=== PATIENT | female | born 1970 | race Caucasian/White ===

== ENCOUNTER 2020-04-24 13:06 | Emergency (ER) | payer OTHER, SELFPAY ==
[2020-04-24 13:14] VITALS: BP 129/80; PULSE 105; RESP 18; TEMP 36.7; O2SAT 97
--- NOTE | 2020-04-24 13:20 | ED.URI ---
HPI - URI/Sore Throat General Chief Complaint: Upper Respiratory Infection Stated Complaint: throat cough and chest Time Seen by Provider: 04/24/20 13:20 Source: patient and RN notes reviewed History of Present Illness HPI Narrative: Patient is a 49-year-old female who presents the urgent care with complaints of congestion, cough and sore throat. States that it started Thursday after being on a float trip at [facility] on Thursday and Thursday. Patient states she has been very compliant on wearing her mask and denies of any known exposure to COVID. Patient has been using [id number] decongestion. Denies of any shortness of breath, fever, chills, nausea, vomiting. States that she is expecting a new grandbaby this week and wants to make sure she is not contagious . No other acute complaints. No acute distress noted. Patient had a plan of care. Related Data Allergies Allergy/AdvReac Type Severity Reaction Status Date / Time No Known Allergies Allergy Mild Unverified 11/21/17 16:54 Review of Systems Review of Systems: Narrative: CONSTITUTIONAL: Denies fever, chills, or sweats. EYES: Denies visual changes, redness, or discharge. ENT: Reports of sore throat and congestion CARDIOVASCULAR: Denies chest pain, palpitations, or edema. RESPIRATORY: Reports of nonproductive cough without dyspnea GASTROINTESTINAL: Denies abdominal pain, nausea, vomiting, or diarrhea. GENITOURINARY: Denies dysuria or hematuria. SKIN: Denies rash or itching. MUSCULOSKELETAL: Denies back pain, joint pain, or myalgia. NEUROLOGIC: Denies headache, numbness, or weakness. All other systems reviewed are negative, except as documented in HPI. PMFSH Family History Family History (Updated 01/25/18 @ 10:56 by DOCTOR UNKNOWN) Sibling Family history of elevated blood lipids Patient's brother is in good health Father Patient's father is Social History Social History Smoking status: Never smoker Alcohol intake: never Comments At the time of my signature, I reviewed and agree with the nursing past medical, surgical, social, and family history. There is no relevant family history pertinent to the patient complaint. Exam Narrative: Exam Narrative: GENERAL: This is a well-nourished, well-developed patient, in no apparent distress. HEAD: normocephalic, atraumatic. EYES: PERRL. Sclera clear/white. Vision is grossly intact. EARS: External ears normal, auditory canals clear and without drainage, TMs normal without perforation. Hearing grossly intact. NOSE: External nose normal with no obvious nasal discharge, nares without redness, no rhinorrhea. THROAT: Mucous membranes moist, mild erythema noted to posterior oropharynx with mild postnasal drainage NECK: Neck supple CARDIOVASCULAR: Regular rate and rhythm without murmurs, gallops, or rubs. RESPIRATORY: Clear to auscultation. Breath sounds equal bilaterally. No wheezes, rales, or rhonchi. SKIN: warm, intact with no suspicious lesions or rash, good texture and turgor. NEURO: awake, alert, and oriented to person, place and time. There were no obvious focal neurologic abnormalities. EXTREMITIES: No clubbing, cyanosis, or edema. Course Vital Signs Vital signs: Vital Signs Temperature 98.0 F 04/24/20 13:14 Pulse Rate 105 H 04/24/20 13:14 Respiratory Rate 18 04/24/20 13:14 Blood Pressure 129/80 04/24/20 13:14 Pulse Oximetry 97 04/24/20 13:14 Temperature 98.0 F 04/24/20 13:14 Pulse Rate 105 H 04/24/20 13:14 Respiratory Rate 18 04/24/20 13:14 Blood Pressure 129/80 04/24/20 13:14 Pulse Oximetry 97 04/24/20 13:14 Reviewed MDM - URI/Sore Throat MDM Narrative Medical decision making narrative: Reviewed lab results with the patient. She is aware that strep swab was negative. Educated patient on culture, we will call within 72 hours if culture is positive and antibiotics are necessary. If you wish to call to check on the results, wait at least 72 h
== END 2020-04-24 13:48 | disposition home or self-care (01) ==
PROVIDERS: Emergency Provider Nurse Practitioner Family; PCP Internal Medicine
DX: J02.9 Acute pharyngitis, unspecified (principal)
CPT/HCPCS: 87081; 87880; 99213; G0463

== ENCOUNTER → 2022-02-07 13:24 | Outpatient (CLI) | payer OTHER, SELFPAY ==
--- NOTE | ~2022-02-07 | MM_ITS ---
EXAMINATION: MM screening [facility] BI w mimi HISTORY: Screening TECHNIQUE: Craniocaudal and mediolateral oblique 3-D tomosynthesis images were obtained and synthetic 2-D images were generated. CAD analysis was submitted and interpreted. COMPARISON: Comparison to multiple prior studies sequentially, with oldest reviewed study dated 09/26. BREAST PARENCHYMAL COMPOSITION: There are scattered areas of fibroglandular density. FINDINGS: There is no evidence of suspicious mass, calcification, or architectural distortion to sugg est malignancy in either breast. There has been no suspicious interval change. IMPRESSION: 1. No mammographic evidence of malignancy. 2. Recommend routine screening mammography in one year. BI-RADS Category 1: Negative Reviewed, dictated and finalized at location A.
== END ==
PROVIDERS: Visit Provider Internal Medicine
DX: Z12.31 Encounter for screening mammogram for malignant neoplasm of breast (principal)
CPT/HCPCS: 77063; 77067

== ENCOUNTER 2022-02-10 16:56 | Outpatient (CLI) | payer OTHER, SELFPAY ==
--- NOTE | ~2022-02-10 | XR_ITS ---
EXAM: XR knee LT 3V HISTORY: M25.562 - Pain in left knee X 2 WKS, NO INJURY, HARD TO BEND COMPARISON: None available FINDINGS: Normal mineralization. No fracture or dislocation. Moderate medial and mild lateral joint space narrowing. Mild osteophytosis present in the medial compartment. Moderate volume joint fluid. S mall posterior ossicle may represent a fabella or loose body in a posterior joint recess. IMPRESSION: No acute osseous finding in the left knee. Moderate left knee joint effusion. Reviewed, dictated and finalized at location K.
== END 2022-02-10 16:57 | disposition home or self-care (01) ==
LOC: ANHIMG 16:59
PROVIDERS: PCP Internal Medicine; Visit Provider Internal Medicine
DX: M25.562 Pain in left knee (principal); M25.462 Effusion, left knee
CPT/HCPCS: 73562

== ENCOUNTER → 2022-03-21 08:23 | Outpatient (CLI) | payer OTHER, SELFPAY ==
--- NOTE | ~2022-03-21 | MR_ITS ---
EXAMINATION: MR knee LT wo con DATE: 03/21/2022 09:06 INDICATION: Left knee pain TECHNIQUE: Magnetic resonance imaging (MRI) of the left knee was performed without intravenous contra st. Sequences included coronal PD-weighted FSE, coronal PD-weighted FS FSE, sagittal T2-weighted FSE , sagittal PD-weighted FS FSE and axial PD weighted fat saturated FSE. COMPARISON: None. FINDINGS: Medial compartment: Medial meniscus is normal. Extensive partial thickness chondral ulceration along the anterior to cent ral weightbearing medial femoral condyle with underlying mild edema-like marrow signal change at the anterior weightbearing medial femoral condyle. Additional mild partial thickness cartilage loss with smooth chondral surface along the medial tibial plateau. Lateral compartment: Lateral meniscus is normal. Articular cartilage is normal. Patellofemoral compartment: Deep chondral fissuring without degenerative subchondral changes at the central medial patellar facet extending to the inferior aspect of the apical ridge. Ligaments and tendons: Anterior and posterior cruciate ligaments are normal. The medial collateral ligament and fibular dana ateral ligament complex are normal. The extensor mechanism is normal. The visualized medial and later al hamstring tendons as well as the iliotibial band are normal. Fluid: Moderate right knee joint effusion at the suprapatellar pouch. 6 mm loose body at the recess posterio r to the distal posterior cruciate ligament. Osseous/other: Normal marrow signal aside from the subarticular edema-like change at the medial femoral condyle. No fracture or pathologic marrow replacing process. IMPRESSION: 1. Mild osteoarthritis in the medial and patellofemoral compartments with high-grade chondromalacia a long the anterior weightbearing medial femoral condyle and moderate grade chondromalacia at the nice la and medial tibial plateau. Reviewed, dictated and finalized at location B. IMPRESSION: 1. Mild osteoarthritis in the medial and patellofemoral compartments with high- grade chondromalacia along the anterior weightbearing medial femoral condyle an d moderate grade chondromalacia at the patella and medial tibial plateau.
== END ==
PROVIDERS: PCP Internal Medicine; Visit Provider Nurse Practitioner Family
DX: M25.562 Pain in left knee (principal); M17.12 Unilateral primary osteoarthritis, left knee; M22.42 Chondromalacia patellae, left knee
CPT/HCPCS: 73721

== ENCOUNTER 2022-06-09 18:07 | Emergency (ER) | payer OTHER, SELFPAY ==
[2022-06-09 18:12] VITALS: BP 146/85; PULSE 82; RESP 16; TEMP 37; O2SAT 99
[2022-06-09 18:30] VITALS: BP 146/85; PULSE 82; RESP 16; TEMP 37; O2SAT 99
--- NOTE | 2022-06-09 18:38 | ED.SKABFB ---
HPI - Skin/Abscess/Foreign Bdy General Chief complaint: Skin/Abscess/Foreign Body Stated complaint: Skin Sore/Finger Time Seen by Provider: 06/09/22 18:35 Source: patient and RN notes reviewed Mode of arrival: ambulatory Limitations: no limitations History of Present Illness HPI narrative: 51-year-old female presents concern for pain, redness, swelling to the base of the nailbed of the second digit of the right hand. Reports she has been dealing ring with it on and off for several months. Reports occasionally she will express clear or white liquid from the area. She reports over the last several days has become more swollen, red, painful than usual. She reports symptoms started after she had an artificial nails removed MD complaint: other (Paronychia) Related Data Home Medications Medication Instructions Recorded Confirmed spironolactone 100 mg tablet 100 mg PO DAILY 05/09/20 06/09/22 levonorgestrel 20 mcg/24 hours (7 1 insert intrauterine ONCE 05/20/21 06/09/22 yrs) 52 mg intrauterine device (Mirena) atorvastatin 20 mg tablet 20 mg PO DAILY 06/09/22 06/09/22 Allergies Allergy/AdvReac Type Severity Reaction Status Date / Time No Known Allergies Allergy Mild Verified 06/09/22 18:28 Review of Systems Review of Systems: CONSTITUTIONAL: Denies malaise, chills, sweats, or fever. EYES: Denies redness, or discharge. ENT: Denies rhinorrhea, congestion, swollen lips, swollen tongue CARDIOVASCULAR: Denies chest pain, palpitations, or edema. RESPIRATORY: Denies cough or dyspnea. GASTROINTESTINAL: Denies abdominal pain, nausea, vomiting SKIN: Reports swelling, pain, redness to the base of the nailbed of the second digit of the right hand MUSCULOSKELETAL: Denies joint pain or myalgia. NEUROLOGIC: Denies headache. All systems reviewed & are unremarkable except as noted in HPI and below PMFSH Past Medical History Medical History Degenerative joint disease of knee Effusion, left knee Left knee pain Medial meniscus tear Other hyperlipidemia Thrombocytopenia, unspecified Weight gain Surgical History Surgical History H/O section 2004 and 2006 Family History Family History Sibling Family history of elevated blood lipids Patient's brother is in good health Father Patient's father is Social History Social History Smoking status: Never smoker Second hand tobacco smoke exposure: No Alcohol intake: never Substance use: never Comments At time of signature, agree with nursing past medical, surgical, social and family history. There is no relevant family history pertinent to the presenting complaint Exam Narrative: GENERAL: Well-appearing, well-nourished, and in no acute distress. HEAD: Normocephalic, atraumatic. EYES: PERRLA, conjunctivae clear, and EOMI. ENT: Mucous membranes moist. Oropharynx without edema, erythema or lesions. NECK: Supple. No lymphadenopathy CHEST: Clear to auscultation. No respiratory distress. HEART: Regular rate and rhythm. SKIN: Warm, dry. Paronychia noted to the base of the nailbed of the second digit of the right hand without fluctuation or purulent drainage NEURO: Alert and oriented x3. PSYCH: Normal mood and affect Course Course Emergency Course: Patient is aware of diagnosis, understands and agrees to treatment plan. Anticipatory guidance given. Patient agrees to follow-up as directed and is aware of reasons to seek care at the emergency department. Portions of this record may have been created with voice recognition software Level of Care: Express Care Visit Vital Signs Vital signs: Vital Signs Temperature 98.6 F 06/09/22 18:12 Pulse Rate 82 06/09/22 18:12 Respiratory Rate 16 06/09/22 18:12 Blood Pressure 146/
== END 2022-06-09 18:46 | disposition home or self-care (01) ==
PROVIDERS: Emergency Provider Nurse Practitioner; PCP Internal Medicine
DX: L03.011 Cellulitis of right finger (principal); E78.49 Other hyperlipidemia; D69.6 Thrombocytopenia, unspecified
CPT/HCPCS: 99213; G0463

== ENCOUNTER 2023-02-18 19:24 | Emergency (ER) | payer OTHER, SELFPAY ==
[2023-02-18 19:35] VITALS: BP 136/88; PULSE 88; RESP 20; TEMP 37.6; O2SAT 99
--- NOTE | 2023-02-18 19:45 | ED.URI ---
HPI - URI/Sore Throat General Chief Complaint: Upper Respiratory Infection Stated Complaint: cough sore throat Time Seen by Provider: 02/18/23 19:45 Source: patient and RN notes reviewed Mode of arrival: ambulatory Limitations: no limitations History of Present Illness HPI Narrative: 52-year-old female presenting for complaint of sore throat, nasal congestion, and cough for about 10 days. She endorses which she tries to blow her nose the drainage is thick and dry, and has occasional nosebleeds. States she felt slightly better for a few day about 3 days ago. Patient denies shortness of breath, wheezing, nausea, vomiting, fevers or chills. She is taking Nyquil and cough syrup for symptoms. MD elicited complaint: cough Related Data Home Medications Medication Instructions Recorded Confirmed spironolactone 100 mg tablet 100 mg PO DAILY 05/09/20 02/18/23 levonorgestrel 21 mcg/24 hours (8 1 insert intrauterine ONCE 05/20/21 02/18/23 yrs) 52 mg intrauterine device (Mirena) Allergies Allergy/AdvReac Type Severity Reaction Status Date / Time No Known Allergies Allergy Mild Verified 02/18/23 19:39 Review of Systems Review of Systems: CONSTITUTIONAL: denies malaise, chills, sweats, fever EYES: Denies visual changes, redness, or discharge ENT: Reports sore throat, congestion, denies sinus pain, otalgia CARDIOVASCULAR: Denies chest pain, palpitations, edema RESPIRATORY: Reports cough. Denies dyspnea, post nasal drainage GASTROINTESTINAL: Denies abdominal pain, nausea, vomiting, diarrhea SKIN: Denies rash or itching MUSCULOSKELETAL: denies myalgia NEUROLOGIC: Denies headache [facility] Past Medical History Medical History Degenerative joint disease of knee Effusion, left knee Left knee DJD Left knee pain Medial meniscus tear Other hyperlipidemia Thrombocytopenia, unspecified Weight gain Surgical History Surgical History H/O section 2004 and 2006 Family History Family History Sibling Family history of elevated blood lipids Patient's brother is in good health Father Patient's father is Social History Social History Smoking status: Never smoker Second hand tobacco smoke exposure: No Alcohol intake: never Substance use: never Exam Narrative: GENERAL: mildly Ill-appearing, nontoxic no acute distress. HEAD: Normocephalic EYES: PERRLA, conjunctivae clear ENT: Mucous membranes moist. TM pearly young with dull light reflex bilaterally; no tragal tenderness. Oropharynx erythematous without lesions or exudate, no drooling, no hoarseness, no trismus, uvula midline. No tripod positioning, muffled voice, soft palate or pharyngeal wall bulging NECK: Supple. No lymphadenopathy CHEST: Clear to auscultation, breath sounds equal. No wheezing, rhonchi, rales, or stridor. No respiratory distress, speaks in full sentences. HEART: Regular rate and rhythm. No murmur heard. SKIN: Warm, dry, no rash. NEURO: Alert and oriented x3. PSYCH: Normal mood and affect Course Course Emergency Course: Patient is aware of diagnosis, understands and agrees to treatment plan. Anticipatory guidance given. Patient agrees to follow-up as directed and is aware of reasons to seek care at the emergency department. Portions of this record may have been created with voice recognition software Level of Care: Express Care Visit Vital Signs Vital signs: Vital Signs Temperature 99.6 F 02/18/23 19:35 Pulse Rate 88 02/18/23 19:35 Respiratory Rate 20 02/18/23 19:35 Blood Pressure 136/88 02/18/23 19:35 Pulse Oximetry 99 02/18/23 19:35 Oxygen Delivery Room Air 02/18/23 19:35 Temperature 99.6 F 02/18/23 19:35 Pulse Rate 88 02/18/23 19:35 R
== END 2023-02-18 20:01 | disposition home or self-care (01) ==
PROVIDERS: Emergency Provider Nurse Practitioner Family; PCP Internal Medicine
DX: J06.9 Acute upper respiratory infection, unspecified (principal); M17.12 Unilateral primary osteoarthritis, left knee; E78.49 Other hyperlipidemia
CPT/HCPCS: 87081; 87880; 99213; G0463

== ENCOUNTER 2023-03-21 09:15 | Emergency (ER) | payer OTHER, SELFPAY ==
--- NOTE | ~2023-03-21 | XR_ITS ---
EXAMINATION: XR ankle RT min 3V DATE: 03/21/2023 09:40 INDICATION: Right ankle pain. Fall. TECHNIQUE: 4 views of right ankle were obtained. COMPARISON: None. FINDINGS: Bone alignment is normal. There is a small bone fragment distal to medial malleolus. Joint spaces are normal. There is an enthesophyte at posterior aspect of calcaneal tuberosity. Ankle soft t issue swelling is noted. IMPRESSION: 1. Small fragment of bone distal to medial malleolus, which may be an acute avulsion fracture or a ch ronic finding. Reviewed, dictated and finalized at location A. IMPRESSION: 1. Small fragment of bone distal to medial malleolus, which may be an acute avu lsion fracture or a chronic finding.
[2023-03-21 10:21] VITALS: BP 123/76; PULSE 82; RESP 16; TEMP 36.7; O2SAT 99
--- NOTE | 2023-03-21 10:43 | ED.LOWEXIN ---
HPI - Extremity Injury (Lower) General Chief Complaint: Extremity Injury, Lower Stated Complaint: right ankle injury after fall Time Seen by Provider: 03/21/23 09:19 Source: patient Mode of arrival: ambulatory Limitations: no limitations History of Present Illness HPI Narrative: Patient is a 52 y/o female who presents the ED with report of right ankle pain s/p fall. Patient reports she slipped and fell down her back porch steps last night around 5:30 PM. She is unsure how exactly the injury occurred, but was unable to bear weight on her right ankle afterwards due to the pain and swelling. She complains of the most pain to her medial R ankle. She has been using ice and crutches and elevating her leg. Denies any other injuries. Denies HI/LOC, numbness. Related Data Home Medications Medication Instructions Recorded Confirmed spironolactone 100 mg tablet 100 mg PO DAILY 05/09/20 02/18/23 levonorgestrel 21 mcg/24 hours (8 1 insert intrauterine ONCE 05/20/21 02/18/23 yrs) 52 mg intrauterine device (Mirena) Allergies Allergy/AdvReac Type Severity Reaction Status Date / Time No Known Allergies Allergy Mild Verified 03/21/23 10:24 Review of Systems Review of Systems: CONSTITUTIONAL: Denies fever, chills, or sweats. GASTROINTESTINAL: Denies abdominal pain, nausea, vomiting. MUSCULOSKELETAL: See HPI. NEUROLOGIC: Denies HI, LOC, tingling, numbness, or weakness. All systems reviewed & are unremarkable except as noted in HPI and below PMFSH Past Medical History Medical History Degenerative joint disease of knee Effusion, left knee Left knee DJD Left knee pain Medial meniscus tear Other hyperlipidemia Thrombocytopenia, unspecified Weight gain Surgical History Surgical History H/O section 2004 and 2006 Family History Family History Sibling Family history of elevated blood lipids Patient's brother is in good health Father Patient's father is Social History Social History Smoking status: Never smoker Second hand tobacco smoke exposure: No Alcohol intake: never Substance use: never Exam Narrative: GENERAL: Well appearing, obese with BMI of 32.9, non-toxic, in no acute distress. HEAD: Normocephalic, atraumatic. NECK: Supple. No adenopathy, no masses. RESPIRATORY: Airway patent, respirations nonlabored. Clear to auscultation bilaterally, no rales, rhonchi, wheezing. CARDIOVASCULAR: Regular rate and rhythm without murmurs, rubs, or gallops. PT/DP pulses 2+ and equal bilaterally. MUSCULOSKELETAL: Moves all extremities. Strength/ROM intact without gross deformities. Limited ROM of right ankle due to pain. Swelling noted diffusely throughout right ankle joint, across ankle mortise, bilateral malleoli. Tenderness to palpation to bilateral malleoli, worse on inferior medial malleoli/posterior lateral malleoli. SKIN: Warm, dry, normal color. No rashes. NEURO: A&O X3. Speech clear. Cranial nerves II-XII grossly intact. Steady gait. No ataxic movements. No focal deficits. PSYCHIATRIC: Appropriate mood and affect. Normal interaction. Course Vital Signs Vital signs: Vital Signs Temperature 98.1 F 03/21/23 10:21 Pulse Rate 82 03/21/23 10:21 Respiratory Rate 16 03/21/23 10:21 Blood Pressure 123/76 03/21/23 10:21 Pulse Oximetry 99 03/21/23 10:21 Oxygen Delivery Room Air 03/21/23 10:21 Temperature 98.1 F 03/21/23 10:21 Pulse Rate 82 03/21/23 10:21 Respiratory Rate 16 03/21/23 10:21 Blood Pressure 123/76 03/21/23 10:21 Pulse Oximetry 99 03/21/23 10:21 Oxygen Delivery Room Air 03/21/23 10:21 MDM - Extremity Injury (Lower) MDM Narrative Medical decision making narrative: Patient's in
[2023-03-21 11:32] VITALS: BP 118/74; PULSE 79; RESP 16; O2SAT 99
== END 2023-03-21 11:35 | disposition home or self-care (01) ==
PROVIDERS: Emergency Provider Physician Assistant; PCP Internal Medicine
DX: S82.51XA Displaced fracture of medial malleolus of right tibia, initial encounter for closed fracture (principal); E78.5 Hyperlipidemia, unspecified; W10.9XXA Fall (on) (from) unspecified stairs and steps, initial encounter
CPT/HCPCS: 29515; 73610; 99283; 99284

== ENCOUNTER → 2023-05-26 14:41 | Outpatient (CLI) | payer OTHER, SELFPAY ==
--- NOTE | ~2023-05-26 | MM_ITS ---
EXAMINATION: MM screening [facility] BI w mimi HISTORY: Screening mammogram TECHNIQUE: Craniocaudal and mediolateral oblique 3-D tomosynthesis images were obtained and synthetic 2-D images were generated. CAD analysis was submitted and interpreted. COMPARISON: 02/07/2022, 07/30/2017 BREAST PARENCHYMAL COMPOSITION:There are scattered areas of fibroglandular density. FINDINGS: No suspicious mass, calcification, or architectural distortion are identified in either carlos ast to suggest malignancy. There has been no suspicious interval change. IMPRESSION: No mammographic evidence of malignancy. Recommend routine screening mammography in one year. BI-RADS Category 1: Negative Reviewed, dictated and finalized at location .
== END ==
PROVIDERS: PCP Obstetrics & Gynecology; Visit Provider Obstetrics & Gynecology
DX: Z12.31 Encounter for screening mammogram for malignant neoplasm of breast (principal)
CPT/HCPCS: 77063; 77067

== ENCOUNTER 2023-08-10 00:09 | Day surgery (SDC) | payer OTHER, SELFPAY ==
[2023-07-30 15:55] VITALS: BMI 34.5
[2023-08-10 12:25] VITALS: BP 122/81; PULSE 93; RESP 16; TEMP 36.8; O2SAT 98
[2023-08-10] MEDS: LACTATED RINGERS 1,000 ML 150 ML IV CONT (12:34)
--- NOTE | 2023-08-10 12:41 | PM.HPGS ---
History of Present Illness History of Present Illness Consent: Risks, benefits, and alternatives have been discussed and questions answered. Patient agrees to proceed with procedure. Chief complaint: neoplasm screening Narrative: Nadine Vazquez is a 53 year old female Presents for screening colonoscopy. Patient's current weight appetite and bowel movements are normal. She denies abdominal pain. She has had no bleeding. Family history noncontributory. Review of Systems Review of Systems: Review of systems noncontributory. [facility] Past Medical History Medical History (Updated 08/10/23 @ 12:43 by Stanton Hurt MD) Arthritis Degenerative joint disease of knee Effusion, left knee Left knee DJD Left knee pain Medial meniscus tear Other hyperlipidemia Right ankle sprain Thrombocytopenia, unspecified Weight gain Surgical History Surgical History H/O section 2004 and 2006 Family History Family History Sibling Family history of elevated blood lipids Patient's brother is in good health Father Patient's father is Social History Social History Smoking status: Never smoker Second hand tobacco smoke exposure: No Alcohol intake: never Substance use: never Substance use type: does not use Lack of Transportation: No Lack of Food: Never True Current Housing: I Have Housing Concerned About Future Housing: No Difficulty Paying Gas/Electric Bills: No Difficulty Paying for Meds: No Currently Unemployed: No Education: Bachelor's Degree Difficulty w/ Childcare or Family Care: No Living arrangements: other Additional living arrangements comments: with sp Occupation/Education: occupation 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 Meds Home Medications and Allergies Home Medications Medication Instructions Recorded Confirmed Type spironolactone 100 mg tablet 100 mg PO DAILY 05/09/20 08/10/23 History levonorgestrel 21 mcg/24 hours (8 1 insert intrauterine ONCE 05/20/21 08/10/23 History yrs) 52 mg intrauterine device (Mirena) atorvastatin 20 mg tablet 20 mg PO DAILY #90 tabs 08/04/22 08/10/23 Rx citalopram 40 mg tablet 40 mg PO DAILY #90 tabs 05/29/23 08/10/23 Rx Allergies Allergy/AdvReac Type Severity Reaction Status Date / Time No Known Allergies Allergy Mild Verified 08/10/23 12:24 Vital Signs Vital Signs - 24 hr 08/10/23 12:25 Temperature 98.2 F Pulse Rate 93 Respiratory Rate 16 Blood Pressure 122/81 Pulse Oximetry 98 Oxygen Delivery Room Air Exam Narrative: Physical exam reveals patient to be alert. Vital signs stable. HEENT exam is unremarkable. Patient is anicteric. Lungs are clear to auscultation and percussion. Heart is without murmur or extra sounds. Abdomen bowel sounds are present soft nontender with no organomegaly. Digital external rectal exam normal. Assessment and Plan Assessment and plan (1) Encounter for screening colonoscopy: Code(s): Z12.11 - Encounter for screening for malignant neoplasm of colon Status: Acute Assessment and Plan: Patient presents today for screening colonoscopy. She appears to be at average risk for colon polyps. Further recommendations may be given after endoscopy.
--- NOTE | 2023-08-10 13:04 | WPDANESEPPF ---
Anes - Initial Pre Proc Eval Procedure: Operation Date: 08/10/23 13:30 Proposed Procedures p Screening Colonoscopy - Stanton Hurt MD Date/Time: 08/10/23 13:04 Surgeon: Stanton Hurt MD Pre Op Diagnosis: neoplasm screening Patient Data Age: 53 Gender: F Height: 1.7 m Weight: 100 kg Last Vital Signs Temp 98.2 F 08/10/23 12:25 Pulse 93 08/10/23 12:25 Resp 16 08/10/23 12:25 BP 122/81 08/10/23 12:25 Pulse Ox 98 08/10/23 12:25 O2 Del Method Room Air 08/10/23 12:25 Allergies Allergy/AdvReac Type Severity Reaction Status Date / Time No Known Allergies Allergy Mild Verified 08/10/23 12:24 Home Medications Medication Instructions Recorded Confirmed Type spironolactone 100 mg tablet 100 mg PO DAILY 05/09/20 08/10/23 History levonorgestrel 21 mcg/24 hours (8 1 insert intrauterine ONCE 05/20/21 08/10/23 History yrs) 52 mg intrauterine device (Mirena) atorvastatin 20 mg tablet 20 mg PO DAILY #90 tabs 08/04/22 08/10/23 Rx citalopram 40 mg tablet 40 mg PO DAILY #90 tabs 05/29/23 08/10/23 Rx Patient hx anesthesia problems: none Family hx anesthesia problems: none Results Review: All pre-operative results and documents have been reviewed as part of the pre-operative evaluation. [facility] Past Medical History Medical History (Updated 08/10/23 @ 12:43 by Stanton Hurt MD) Arthritis Degenerative joint disease of knee Effusion, left knee Left knee DJD Left knee pain Medial meniscus tear Other hyperlipidemia Right ankle sprain Thrombocytopenia, unspecified Weight gain Surgical History Surgical History H/O section 2004 and 2006 Family History Family History Sibling Family history of elevated blood lipids Patient's brother is in good health Father Patient's father is Social History Social History Smoking status: Never smoker Second hand tobacco smoke exposure: No Alcohol intake: never Substance use: never Substance use type: does not use Lack of Transportation: No Lack of Food: Never True Current Housing: I Have Housing Concerned About Future Housing: No Difficulty Paying Gas/Electric Bills: No Difficulty Paying for Meds: No Currently Unemployed: No Education: Bachelor's Degree Difficulty w/ Childcare or Family Care: No Living arrangements: other Additional living arrangements comments: with sp Occupation/Education: occupation 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 Informed Consent: The patient's anesthetic plan and its attendant risks and benefits were discussed with the patient/family/POA. Questions were solicited and answers provided to the satisfaction of the patient/family/POA.
[2023-08-10 13:31] VITALS: BP 132/82; PULSE 88; RESP 21; O2SAT 99
[2023-08-10 13:41] VITALS: BP 131/83; PULSE 91; RESP 21; O2SAT 99
[2023-08-10 13:51] VITALS: BP 124/95; PULSE 86; RESP 16; O2SAT 100
== END 2023-08-10 14:05 | disposition home or self-care (01) ==
PROVIDERS: PCP Internal Medicine; Visit Provider Internal Medicine Gastroenterology
PROC: 0DJD8ZZ Inspection of Lower Intestinal Tract, Via Natural or Artificial Opening Endoscopic (ICD-10-PCS; CPT 45378; principal; 2023-08-10 13:30)
DX: Z12.11 Encounter for screening for malignant neoplasm of colon (principal); D12.5 Benign neoplasm of sigmoid colon; K63.5 Polyp of colon; E78.49 Other hyperlipidemia; E66.9 Obesity, unspecified; Z68.34 Body mass index [BMI] 34.0-34.9, adult
CPT/HCPCS: 45380; 88305; J2704; J7120

== ENCOUNTER → 2023-08-17 15:32 | Outpatient (CLI) | payer OTHER, SELFPAY ==
--- NOTE | ~2023-08-17 | MR_ITS ---
MRI of the right ankle Clinical history: Sprain Technique: Coronal proton-density and proton-density fat-sat images, axial proton-density and proton- density fat-sat images, and sagittal proton-density and proton-density fat-sat images were acquired. Findings: Syndesmotic ligaments are intact. There is thickening and increased signal of the anterior talofibular ligament and calcaneofibular ligament, consistent with sprain. Posterior talofibular liga ment is intact. Deltoid ligament is intact. Medial flexor tendons, peroneal tendons, anterior extensor tendons, and Achilles tendon are intact. There is focal high-grade chondromalacia at the medial corner of the talar dome with focal subchondra l cystic change at the medial corner of the talar dome. There is enthesopathic change/cystic change i n the calcaneal body. Small to moderate tibiotalar joint effusion present. Plantar fascia is intact. No soft tissue mass or fluid collection evident. Impression: Thickening and increased signal of the anterior talofibular and calcaneofibular ligaments is consiste nt with sprain. Focal high-grade chondromalacia at the medial corner of the talar dome with subchondral cystic change and mild surrounding reactive marrow edema. Small to moderate tibiotalar joint effusion. Reviewed, dictated and finalized at location . Impression: Thickening and increased signal of the anterior talofibular and calcaneofibular ligaments is consistent with sprain. Focal high-grade chondromalacia at the medial corner of the talar dome with sub chondral cystic change and mild surrounding reactive marrow edema. Small to moderate tibiotalar joint effusion.
== END ==
PROVIDERS: PCP Orthopaedic Surgery; Visit Provider Orthopaedic Surgery
DX: S93.401A Sprain of unspecified ligament of right ankle, initial encounter (principal); M94.271 Chondromalacia, right ankle and joints of right foot; M25.471 Effusion, right ankle
CPT/HCPCS: 73721

== ENCOUNTER 2024-02-01 15:51 | Outpatient (CLI) | payer OTHER, SELFPAY ==
--- NOTE | ~2024-02-01 | MR_ITS ---
EXAMINATION: MR knee RT wo con DATE: 02/01/2024 16:27 INDICATION: M25.561 - Pain in right knee TECHNIQUE: Magnetic resonance imaging (MRI) of the right knee was performed without intravenous contr ast. Sequences included axial PD-weighted FS FSE, coronal PD-weighted FSE and PD-weighted FS FSE, sag ittal PD-weighted FSE, and sagittal T2-weighted FS FSE. COMPARISON: None. FINDINGS: Medial compartment: Slight notch-like deformity of the undersurface of the junction of the posterior horn and body. Sever e full-thickness cartilage loss on the weightbearing surface of the MFC with adjacent areas of sheari ng. Near full-thickness cartilage loss on the medial tibial plateau. Mild osteophytosis. Lateral compartment: Meniscus intact. Mild diffuse thinning of cartilage. Patellofemoral compartment: Focal areas of partial and full-thickness cartilage signal abnormality with mild thinning. Retinacula intact. Mild enthesopathy. Ligaments and tendons: Proximal MCL thickening as can be seen with chronic partial tear. The ACL, PCL, and LCL are intact. R emaining flexor and extensor tendons are intact. Fluid: Small volume joint fluid. Osseous/other: No suspicious focal or diffuse marrow signal. IMPRESSION: Oblique undersurface tear at the junction of the posterior horn and body, medial meniscus. Chronic partial MCL tear. Tricompartmental osteoarthritic change, moderate-severe in the medial compartment. Small right knee joint effusion. Reviewed, dictated and finalized at location K. IMPRESSION: Oblique undersurface tear at the junction of the posterior horn and body, media l meniscus. Chronic partial MCL tear. Tricompartmental osteoarthritic change, moderate-severe in the medial compartme nt. Small right knee joint effusion.
== END 2024-02-01 15:52 ==
LOC: MICIMG 15:52
PROVIDERS: PCP Nurse Practitioner Family; Visit Provider Nurse Practitioner Family
DX: M25.561 Pain in right knee (principal); S83.241A Other tear of medial meniscus, current injury, right knee, initial encounter; S83.411A Sprain of medial collateral ligament of right knee, initial encounter; M17.11 Unilateral primary osteoarthritis, right knee; M25.461 Effusion, right knee
CPT/HCPCS: 73721

== ENCOUNTER 2024-10-11 16:33 | Emergency (ER) | payer OTHER, SELFPAY ==
[2024-10-11 16:41] VITALS: BP 120/70; PULSE 79; RESP 16; TEMP 37.3
[2024-10-11 17:55] LABS: EDSTREPNEGPOS1 Negative (Negative)
--- NOTE | 2024-10-11 18:24 | ED.GENADULT ---
HPI - General Adult General Chief complaint: Upper Respiratory Infection Stated complaint: Cough/Sore Throat/Headache Source: patient Mode of arrival: ambulatory Limitations: no limitations History of Present Illness HPI narrative: Patient presents for evaluation of cough and sore throat for the past 2-3 days. She denies any fever, chills, nausea, vomiting, diarrhea, shortness of breath. She was exposed to a few family members who both have pneumonia. She has been taking DayQuil and NyQuil for symptoms. She does not smoke. Related Data Home Medications ?Medication ?Instructions ?Recorded ?Confirmed ?Last Taken ?Type spironolactone 100 mg tablet 100 mg PO DAILY 05/09/20 10/11/24 08/08/23 History levonorgestrel 21 mcg/24 hr (up to 1 insert intrauterine ONCE 05/20/21 10/11/24 Unknown History 8 years) 52 mg intrauterine device (Mirena) Allergies Allergy/AdvReac Type Severity Reaction Status Date / Time No Known Allergies Allergy Mild Verified 10/11/24 17:29 Review of Systems Review of Systems: CONSTITUTIONAL: Denies fever, chills, or sweats. EYES: Denies visual changes, redness, or discharge. ENT: Reports sore throat. Denies rhinorrhea, congestion, or otalgia. CARDIOVASCULAR: Denies chest pain, palpitations, or edema. RESPIRATORY: Reports cough. Denies SOB GASTROINTESTINAL: Denies abdominal pain, nausea, vomiting, or diarrhea. GENITOURINARY: Denies dysuria or hematuria. SKIN: Denies rash or itching. MUSCULOSKELETAL: Denies back pain, joint pain, or myalgia. NEUROLOGIC: Denies headache, numbness, dizziness, or weakness. PSYCHIATRIC: Denies anxiety or depression. 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 Right knee pain Right ankle effusion Right ankle sprain Arthritis Left knee DJD Weight gain Effusion, left knee Degenerative joint disease of knee Medial meniscus tear Left knee pain Other hyperlipidemia Thrombocytopenia, unspecified Surgical History Surgical History H/O section 2004 and 2006 Family History Family History Sibling Family history of elevated blood lipids Patient's brother is in good health Father Patient's father is Other Hypertension Social History Social History Smoking status: Never smoker Second hand tobacco smoke exposure: No Alcohol intake: never Substance use: never Substance use type: does not use Lack of Transportation: No Lack of Food: Never True Current Housing: I Have Housing Concerned About Future Housing: No Difficulty Paying Gas/Electric Bills: No Difficulty Paying for Meds: No Currently Unemployed: No Education: Bachelor's Degree Difficulty w/ Childcare or Family Care: No Living arrangements: with family Additional living arrangements comments: with sp Occupation/Education: occupation 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 HEAD: Normocephalic, atraumatic. EYES: PERRLA and EOMI. ENT: Nares clear, no rhinorrhea or epistaxis. Mucous membranes moist. Oropharynx without tonsillar hypertrophy exudate or other lesions. Bilateral TMs pearly young nonbulging NECK: Supple. No adenopathy or masses. No carotid bruits or JVD CHEST: Clear to auscultation. No respiratory distress. No wheezes rales or rhonchi HEART: Regular rate and rhythm. No murmur heard. Normal peripheral pulses. ABDOMEN: Soft, nontender, nondistended, normal active bowel sounds. EXTREMITIES: Normal range of motion. No edema. SKIN: Warm, dry, no rash. NEURO: No focal deficits. Alert and oriented x3. PSYCH: Normal mood and affect. Course Course Emergency Course: This is a 54-year-old female who presented for evaluation of sore throat and cough. Rapid strep negative. Through shared decision making opted to empirically treat for pneumonia based upon recent number of positive cases in the community as well as her current symptoms in the setting of pneumonia exposures. Will dc with augmentin and doxycycline. Increase hydration. OTC agents for symptom management. Follow up with primary provider. Go to the ER for worsening symptoms. Pt in agreement with plan of care. Level of Care: Express Care Visit Vital Signs Vital signs: Vital Signs Temperature 37.3 C 10/11/24 16:41 Pulse Rate 79 10/11/24 16:41 Respiratory Rate 16 10/11/24 16:41 Blood Pressure 120/70 10/11/24 16:41 Oxygen Delivery Room Air 10/11/24 16:41 Temperature 37.3 C 10/11/24 16:41 Pulse Rate 79 10/11/24 16:41 Respiratory Rate 16 10/11/24 16:41 Blood Pressure 120/70 10/11/24 16:41 Oxygen Delivery Room Air 10/11/24 16:41 Medical Decision Making Vital Signs Vital Signs: Vital Signs Temperature 37.3 C 10/11/24 16:41 Pulse Rate 79 10/11/24 16:41 Respiratory Rate 16 10/11/24 16:41 Blood Pressure 120/70 10/11/24 16:41 Oxygen Delivery Room Air 10/11/24 16:41 Temperature 37.3 C 10/11/24 16:41 Pulse Rate 79 10/11/24 16:41 Respiratory Rate 16 10/11/24 16:41 Blood Pressure 120/70 10/11/24 16:41 Oxygen Delivery Room Air 10/11/24 16:41 Lab Data Labs: Lab Results 10/11/24 Range/Units 17:53 POC Grp A Strep Screen Negative (Negative) Discharge Plan Discharge Clinical Impression: At high risk for pneumonia Patient Disposition: Home, Self-Care Condition: Stable Instructions: Antibiotic Form, Pneumonia (ED) Patient Language: Israeli Prescriptions: New amoxicillin-pot clavulanate 875-125 mg tablet 1 tablet PO Q12H Qty: 20 0RF doxycycline hyclate 100 mg capsule 100 mg PO BID Qty: 20 0RF No Action Mirena 20 mcg/24 hours (6 yrs) 52 mg intrauterine device 1 insert intrauterine ONCE Rx Instructions: as a single dose spironolactone 100 mg tablet 100 mg PO DAILY citalopram 40 mg tablet 40 mg PO DAILY Qty: 90 1RF atorvastatin 20 mg tablet 20 mg PO DAILY Qty: 90 2RF Follow-up/Referrals: Bere,Luis Betts DO [Primary Care Provider] - Time of Disposition: 18:24
== END 2024-10-11 18:30 | disposition home or self-care (01) ==
PROVIDERS: Emergency Provider Nurse Practitioner; PCP Internal Medicine
DX: R05.9 Cough, unspecified (principal); Z20.89 Contact with and (suspected) exposure to other communicable diseases; E78.49 Other hyperlipidemia; M17.0 Bilateral primary osteoarthritis of knee; D69.6 Thrombocytopenia, unspecified
CPT/HCPCS: 87081; 87880; 99213; G0463

== ENCOUNTER 2025-07-20 12:44 | Outpatient (CLI) | payer OTHER, SELFPAY ==
--- NOTE | ~2025-07-20 | MM_ITS ---
EXAMINATION: MM screening luz BI w mimi HISTORY: Screening TECHNIQUE: Craniocaudal and mediolateral oblique 3-D tomosynthesis images were obtained and synthetic 2-D images were generated. CAD analysis was submitted and interpreted. COMPARISON: 05/26/2023 BREAST PARENCHYMAL COMPOSITION: There are scattered areas of fibroglandular density. FINDINGS: There is no evidence of suspicious mass, calcification, or architectural distortion to suggest malignancy. There has been no suspicious interval change. IMPRESSION: 1. No mammographic evidence of malignancy. Recommend routine screening mammography in one year. BI-RADS Category 2: Benign finding(s) Reviewed, dictated and finalized at location Q. IMPRESSION: 1. No mammographic evidence of malignancy. Recommend routine screening mammogra phy in one year. BI-RADS Category 2: Benign finding(s)
--- OUTSIDE RECORDS SUMMARY | 2025-07-20 15:15 | XMS_ITS | Clinical Summary ---
Author Organization [facility] Address [address] [place] [address] Phone Care Team Providers Care Police Patrol Officer Name Role Phone Gennytracey Luisray Melara DO Primary Care Provider [phone] Social History Tobacco Use Types Packs/Day Years Used Date Smoking Tobacco: Never Assessed Comments Unknown Sex and Gender Information Value Date Recorded Sex Assigned at Not on file Legal Sex Female 7:19 PM CDT Gender Identity Not on file Sexual Orientation Not on file Plan of Treatment Health Maintenance Due Date Last Done Comments Hepatitis C Virus (HCV) Screening 1972 Hepatitis B Immunization (1 of 3 - 19+ 3-dose series) 1991 Pap Smear 1993 Cervical Cancer Screening (CCS) 2002 HPV/Cotest 2002 Cologuard 2017 Colonoscopy 2017 Colorectal Cancer Screening 2017 Immunochemical Fecal Occult Blood 2017 Pneumococcal Immunization (5 0+ years) (1 of 1 - PCV) 2022 Zoster Immunization (1 of 2) 2022 Influenza Immunization (#1) 06/26/202507/26, 11/20/2012 SARS-COV-2 Immunization (4 - 2024- season) 2025 09/02/2021, 02/10/2021, 01/20/2021 Respiratory Syncytial Virus (RSV) Immunization (Adult) (1 - 1-dose 75+ series) 2047 DTaP/Tdap/Td Immunization Discontinued 2018, 03/31/2016 TdaP Immunization Completed 01/06/2019, 03/31/2016 Human Papillomavirus (HPV) Immunization Aged Out No longer eligible based on patient's age to complete this topic Meningococcal Immunization (ACWY) Aged Out No longer eligible based on patient's age to complete this topic Rotavirus Immunization Aged Out No lo nger eligible based on patient's age to complete this topic Insurance [address] [place], [place] [id number] Care Teams Police Patrol Officer Relationship Specialty Start Date End Date Luis Blackburn DO [id number] [place] [address] PCP - General Internal Medicine 10/14/21
--- OUTSIDE RECORDS SUMMARY | 2025-07-20 15:15 | XMS_ITS | Clinical Summary ---
Author Organization [facility] Address [facility] [place] [address] Care Team Providers Care Contractor [employer] Name Role Phone Stanton Hurt MD Unavailable [phone] Luis Blackburn MD Primary Care Provider [phone] Juanpablo Mccauley MD Unavailable [phone] Allergies No known active allergies Medications atorvastatin (LIPITOR) 20 mg tablet Take 1 tablet (20 mg total) by mouth daily Active citalopram (CeleXA) 40 mg tablet Take 1 tablet (40 mg total) by mouth daily Active spironolactone (ALDACTONE) 100 mg tablet Take 1 tablet (100 mg total) by mouth daily Active levonorgestreL (MIRENA) IUD 1 each by intrauterine route once Active dapsone 5 % topical gel APPLY TOPICALLY TO ACNE AREA TWICE DAILY NEEDED Active liraglutide, weight loss, (Saxenda) 3 mg/0.5 mL (18 mg/3 mL) pen injector Inject by subcutaneous route for 32 days. 05/15/20 23 Active ondansetron ODT (ZOFRAN-ODT) 4 mg disintegrating tablet Take 1 tablet (4 mg total) by mouth every 6 (six) hours as needed for nausea or vomiting Take prior to each dose of bowel prep for nausea 2 tablet 05/05/20 25 Active Mounjaro 15 mg/0.5 mL pen injector 025 Discontin ued(Thera py completed ) polyethylene glycol-electrolyte s-vitC (MoviPrep) 100-7.5-2.691 gram powder in packetIndications: Bowel Evacuation Take 2,000 mL by mouth once for 1 dose Follow instructions in the nurse hand out for bowel preparation 2000 mL 05/05/20 25 025 Discontin ued(Thera py completed ) Active Problems Problem Noted Date Diagnosed Date Encounter for colonoscopy du e to history of adenomatous colonic polyps 05/05/2025 S/P colonoscopy with polypectomy 05/12/2024 Colonic polyp 09/29/2023 Colon polyp 09/28/2023 Encounters Date Type Department Care Team Description 06/23/2025 Results Follow-Up [facility] Medicine Gastroenterology [address] [place] [address] Ashley Eddy RN Surgical pathology 06/22/2025 7:30 AM CDT - 06/22/2025 8:00 AM CDT Surgery [facility] [address] [place] [phone] Paulie Gunn MD COLON BIOPSY 06/22/2025 7:24 AM CDT Anesthesia Event [facility] [address] [place] [phone] Saji Polo DO 06/22/2025 6:36 AM CDT - 06/22/2025 8:17 AM CDT Hospital Encounter [facility] [address] [place] [phone] Paulie Gunn MD Encounter for colonoscopy due to history of adenomatous colonic polyps Discharge Disposition: Discharge to home or self care 05/05/2025 Telephone [facility] [address] [place] [address] Ashley Eddy RN GI preprocedure 06.22.2025 from Last 3 Months Surgical History Surgery Date Site/Laterality Comments COLONOSCOPY 08/10/2023 SECTION 06/16/2005 SECTION 02/03/2007 Medical History Medical History Date Comments PCOS (polycystic ovarian syndrome) Social History Tobacco Use Types Packs/Day Years Used Date Smoking Tobacco: Never Smokeless Tobacco: Never Tobacco Cessation:Counseling Given: Not Answered Alcohol Use Standard Drinks/Week Comments Never 0 (1 standard drink = 0.6 oz pur e alcohol) AUDIT-C Answer Date Recorded Q1: How often do you have a drink containing alcohol? Never 06/22/2025 Q2: How many drinks containi ng alcohol do you have on a typical day when you are drinking? Patient does not drink Q3: How often do you have si x or more drinks on one occasion? Never 06/22/2025 Personal Safety Answer Date Recorded Have you ever been in or are you currently in a harmful physical or emotional relationship or is someone making you feel afraid or unsafe? 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[employer] Gender Identity Not on file Sexual Orientation Not on file Obstetrics History Last Filed Vital Signs Vital Sign Reading Time Taken Comments Blood Pressure 109/71 06/22/2025 8:00 AM CDT Pulse 76 06/22/2025 8:00 AM CDT Temperature 36.7 C (98.1 F) 06/22/2025 6:53 AM CDT Respiratory Rate 11 06/22/2025 8:00 AM CDT Oxygen Saturation 100% 06/22/2025 8:00 AM CDT Inhaled Oxygen Concentration - - Weight 77.1 kg (170 lb) 06/22/2025 6:53 AM CDT Height 170.2 cm (5' 7) 06/22/2025 6:53 AM CDT Body Mass Index 26.63 06/22/2025 6:53 AM CDT Plan of Treatment Health Maintenance Due Date Last Done Comments Cervical Cancer Screening 1970 Depression Screening 1970 Hepatitis C Screening 1972 Hepatitis B Screening 1990 Regular Well Visit/Exam 18-64 1990 Zoster Vaccine (1 of 2) 2022 Breast Cancer Screening-Mammogram 05/27/2024 05/27/2023 Covid-19 Vaccine ( season) 2025 09/02/2021, 02/10/2021, 01/20/2021 Influenza Vaccine (#1) 2025 4, 07/31/2022, 08/05/2021, Additional history exists DTaP/Tdap/Td Vaccine (3 - Td or Tdap) 01/06/2029 01/06/2019, 03/31/2016 Colon Cancer Screening-Colonoscopy 06/22/2035 06/22/2025, 06/14/2024 Pneumococcal vaccine <65 Aged Out No longer eligible based on patient's age to complete this topic Procedures Procedure Name Priority Date/Time Associated Diagnosis Comments SURGICAL PATHOLOGY Routine 06/22/2025 7: 37 AM CDT Encounter for colonoscopy due to history of adenomatous colonic polyps COLON BIOPSY 06/22/2025 7:23 AM CDT Encounter for colonoscopy due to history of adenomatous colonic polyps COLONOSCOPY 06/22/2025 7:17 AM CDT from Last 3 Months Results * Surgical pathology (06/22/2025 7:37 AM CDT) Tissue (Colon, Biopsy) 06/22/2025 7:37 AM CDT Narrative PATHOLOGY [facility] - 06/23/2025 5:34 AM CDT [address] [address] Tele: Samaria Rojas MD - Lifter Note to Patients: This report may contain a detailed description of human tissue sent by a health care provider to the laboratory for pathologic evaluation. The content of this report is essential for diagnosis and may provide important critical findings. This information may be unfamiliar to patients to review without a medical professional present. It is advised that the patient review this report in the presence of a health care provider who can answer questions and explain the details. SURGICAL PATHOLOGY REPORT Patient Name: NADINE BARON [place]: [place] [address] Gender: F : 1970 (Age: 54) Service: Gastro Location: [facility], Hospital #: [id number] Patient Type: [facility] SAME DAY SURGERY Taken: 06/22/2025 Received 06/22/2025 Reported: 06/23/2025 Physician(s): Paulie Gunn M.D. Luis Blackburn M.D. Juanpablo Mccauley M.D. DIAGNOSIS: Colon, sigmoid scar, mucosal biopsy: - Mild postinflammatory type change - Negative for adenomatous change or malignancy jap/06/23/2025 05:34 Examining Pathologist: Amrit Rodríguez M.D. Report Reviewed and Electronically Signed By Amrit Rodríguez M.D. SPECIMEN TYPE: A: SIGMOID COLON SCAR BIOPSY CLINICAL IMPRESSION AND HISTORY: Surveillance colon piecemeal removal of large sessile adenoma on last colonoscopy less than three years ago. Last colonoscopy May 2024. Findings include medium post mucosectomy scar in the sigmoid colon with healthy appearance with no evidence of previous polyp. GROSS DESCRIPTION: Received in formalin labeled NADINE BARON and sigmoid colon scar biopsy is a 0.2 x 0.2 x 0.1 cm rayo tissue fragment. The specimen is filtered and entirely submitted in A1. jxi/06/22/2025 12:37 JAP,JXI MICROSCOPIC DESCRIPTION: Sections of the sigmoid colon scar biopsy show a fragments of colonic mucosa with minimal architectural distortion of crypts. No parasites, granulomas, adenomatous features, or malignant features are evident. Clerical Data Follows A; 40458 REPORT IMAGES AND/OR SCANNED DOCUMENTS ONLY VIEWABLE IN PDF FORMAT The immunohistochemical test(s) cited in this report, if any, was developed and its performance characteristics determined by [facility] Pathology Department. It has not been cleared or approved by the U.S. Food and Drug Administration. The FDA has determined that such clearance or approval is not necessary. This test is used for clinical purposes. It should not be regarded as investigational or for research. [facility] is certified under the Clinical Laboratory Improvement Amendments of 1988 (CLIA) as qualified to perform high complexity testing. Immunostains were performed on formalin-fixed paraffin embedded tissue using a polymer diaminobenzidine chromogen detection system. Antibodies used may include clone SP1 (rabbit monoclonal, estrogen receptor), clone 1E2 (rabbit monoclonal progesterone receptor), Ki-67 (rabbit monoclonal, 30-9), CD117 (rabbit polyclonal, c-kit), and anti-Her-2/sherri (4B5) (rabbit monoclonal primary antibody). In the event that immunohistochemistry or special stains have been performed, attending physician has confirmed appropriateness of controls. Frozen section, operating room consultation, gross examination and dissection, and case sign out may have been performed in part or completely in the following laboratories: [facility], [address], [place] [address] [facility], [address], [place] [address]. us Paulie Gunn MD LAB PATHOLOGY [facility] Final Result PATHOLOGY [facility] Laboratory Receiving [address] [place], [place] [id number] * Colonoscopy (06/22/2025 7:17 AM CDT) Anatomical Region Laterality Modality Other Narrative Procedure Note Paulie Gunn MD - 06/22/2025 7:17 AM CDT ENDOSCOPY LAB Patient Name: Nadine Baron Procedure Date: 06/22/2025 7:17 AM Admit Type: Outpatient Room: [facility] Date of : 1970 Instrument Name: [id number] Gender: Female Note Status: Finalized Procedure: Colonoscopy Indications: Surveillance: Piecemeal removal of large sessile adenoma last colonoscopy (< 3 yrs), Lastcolonoscopy: May 2024 Providers: Paulie Gunn M.D. Referring MD: Juanpablo Mccauley M.D., Luis Blackburn M.D. Medicines: Monitored Anesthesia Care Complications: No immediate complications. Estimated Blood Loss: Estimated blood loss: none. Procedure: Pre-Anesthesia Assessment: - Immediately prior to administration ofmedications, the patient was re-assessed for adequacy to receive sedatives. - The risks and benefits of the procedure and the sedation options and risks were discussed with the patient. All questions were answered and informed consent was obtained. The benefits, risks and alternatives of theprocedure and sedation were discussed and informed consentwas obtained. All questions were answered. Please referto the signed informed consent document in the medical record. The scope was passed under direct vision.The Colonoscope was introduced through the anus and advanced to the the cecum, identified byappendiceal orifice and ileocecal valve. The colonoscopy was performed without difficulty. The patient tolerated the procedure well. The quality of the bowel preparation was evaluated using the BBPS (BostonBowel Preparation Scale) with scores of: Right Colon = 3, Transverse Colon = 3 and Left Colon = 3 (entiremucosa seen well with no residual staining, smallfragments of stool or opaque liquid). The total BBPS score equals 9. The bowel preparation used was GoLYTELYvia split dose instruction. Findings: The perianal and digital rectal examinations were normal. A medium post mucosectomy scar was found in the sigmoid colon. Thescar tissue was healthy in appearance. There was no evidence of theprevious polyp. The exam was otherwise without abnormality on direct and retroflexion views. Impression: - Post mucosectomy scar in the sigmoid colon. - The examination was otherwise normal on directand retroflexion views. - No specimens collected. Recommendation: - Repeat colonoscopy in 5 years for surveillance. - Return to primary care physician as previously scheduled. - Call my nurses in the GI office at [phone] ([phone]) for your final pathology results in7 days. Attending Participation: I personally performed the entire procedure. Electronically signed by Paulie Gunn MD Paulie Gunn M.D. 06/22/2025 7:41:43 AM This document was signed electronically. Number of Addenda: 0 Note Initiated On: 06/22/2025 7:17 AM Scope Withdrawal Time: 0 hours 7 minutes 18 seconds Scope In: 7:28:37 AM Scope Out: 7:38:47 AM Paulie Gunn MD ENDOSCOPY PROCEDUR ES Final Result from Last 3 Months Insurance [facility] CLAIMS [facility] CLAIM[facility] Advance Directives For more information, please contact: [phone] * Full Code (Latest Code Status on File) Date Activated Date Inactivated Comments 06/22/2025 6:49 AM 06/22/2025 12:17 PM * Full Code Date Activated Date Inactivated Comments 06/14/2024 1:24 PM 06/14/2024 6:40 PM * Full Code Date Activated Date Inactivated Comments 10/27/2023 12:22 PM 10/27/2023 7:33 PM Care Teams Contractor [employer] Relationship Specialty Start Date End Date Luis Blackburn MD [address] [facility] [[email or web address] [address] [place] [address] PCP - General Internal Medicine 08/21/23 Stanton Hurt MD [address] [facility] [[email or web address]] [address] [place] [address] Referring Physician Gastroenterology 08/21/23 Juanpablo Mccauley MD [phone] [place] [address] Surgeon Colon and Rectal Surgery 09/29/23
== END 2025-07-20 12:45 | disposition home or self-care (01) ==
PROVIDERS: PCP Nurse Practitioner; Visit Provider Nurse Practitioner
DX: Z12.31 Encounter for screening mammogram for malignant neoplasm of breast (principal)
CPT/HCPCS: 77063; 77067